=== PATIENT | female | born 1950 | race Caucasian/White ===

== ENCOUNTER 2022-12-31 21:03 | Emergency (ER) | payer MEDICARE, BC, SELFPAY ==
[2022-12-31 21:10] VITALS: BP 150/86; PULSE 80; RESP 18; TEMP 36.9; O2SAT 97; BMI 20.2
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
--- NOTE | 2022-12-31 21:31 | ED_ITS ---
HPI - Extremity Injury (Lower) General Chief Complaint: Extremity Injury, Lower Stated Complaint: LOWER EXTREMITY PAIN, RIGHT KNEE Time Seen by Provider: 12/31/22 21:21 Source: patient and family Mode of arrival: walk-in History of Present Illness HPI Narrative: This 72 year old female with a history of Severe arthritis and charcot brayan tooth presents for evaluation of right knee pain and swelling. Symptoms started this morning. She denies any injury. She has not fallen. She states that she was in the shower and felt that her knee was swollen and throughout the day it has gotten worse. She has severe pain with weightbearing. She is scheduled for a hip replacement in the near future with Dr. Leone in [place]. No additional injuries or complaints. No pain medications were taken prior to arrival. Related Data Allergies Allergy/AdvReac Type Severity Reaction Status Date / Time No Known Drug Allergies Allergy Verified 12/31/22 21:15 Review of Systems ROS Status of ROS 10 or more systems reviewed and unremarkable except as noted in history and below PFSH PFS Social History Smoking status: Current every day smoker Exam Narrative Exam Narrative: Nurses note and vital signs reviewed and patient is not hypoxic. Blood pressure noted to be elevated at 150/86 General: The patient appears well and in no apparent distress. Patient is resting comfortably on cart. Skin: Warm, dry, no pallor noted. There is no rash noted. Head: Normocephalic, atraumatic Eye: Normal conjunctiva, Vision grossly intact Ears, Nose, Mouth, and Throat: oral mucosa is moist. Cardiovascular: Regular Rate and Rhythm Respiratory: Patient is in no distress, no accessory muscle use, lungs are clear to auscultation, no wheezing, rales or rhonchi Back: non-tender, no CVA tenderness bilaterally to percussion. GI: Normal bowel sounds, no tenderness to palpation, no masses appreciated. No rebound, guarding, or rigidity noted. Musculoskeletal: There is marked tenderness and a large effusion over the right knee extending into the distal femur area. Patient is unable to fully extend her right leg. There is no calf swelling or tenderness. Severe arthritic changes are noted of both hands Neurological: A&O x4, normal speech Psychiatric: Cooperative Constitutional Vital Signs, click to edit/add: Last Vital Signs Temp 98.4 F 12/31/22 21:10 Pulse 80 12/31/22 21:10 Resp 18 12/31/22 21:10 BP 150/86 H 12/31/22 21:10 Pulse Ox 97 12/31/22 21:10 Course Vital Signs Vital signs: Vital Signs Temperature 98.4 F 12/31/22 21:10 Pulse Rate 80 12/31/22 21:10 Respiratory Rate 18 12/31/22 21:10 Blood Pressure 150/86 H 12/31/22 21:10 Pulse Oximetry 97 12/31/22 21:10 Temperature 98.4 F 12/31/22 21:10 Pulse Rate 80 12/31/22 21:10 Respiratory Rate 18 12/31/22 21:10 Blood Pressure 150/86 H 12/31/22 21:10 Pulse Oximetry 97 12/31/22 21:10 MDM - Extremity Injury (Lower) MDM Narrative Medical decision making narrative: Procedure note: Arthrocentesis right knee. Procedure was explained to the patient who verbalized understanding and signed consent. The right knee was cleaned with Betadine, sterile drapes were used around the knee. 5 mL of 1 percent lidocaine was infiltrated into the skin and the cutaneous tissues. An 18-gauge needle and 50 mL syringe was used to remove 50 mL of cloudy and mildly bloody synovial fluid from the right knee. The knee was then cleaned with sterile normal saline and a nonocclusive dressing was applied. A Kerlix was applied over the nonocclusive dressing and an Sam wrap was applied over the Kerlix. Patient tolerated procedure well and was able to flex her knee after the arthrocentesis. The synovial fluid that was removed was sent to the lab for cell count and culture Will follow-up with Dr. Leone, orthopedics in [place] X-ray of the knee shows degenerative changes and an effusion but no bony fracture Discharge Plan Discharge Chief Complaint: Extremity Injury, Lower Clinical Impression: Effusion, right knee, Osteoarthritis Patient Disposition: Home, Self-Care Time of Disposition Decision: 22:13 Instructions: Swollen Knee Joint (ED), Joint Aspiration (DC) Additional Instructions: Keep your right knee wrapped with an Sam wrap. Use her walker for ambulation. Use pain medications as needed. Return to emergency department for recurrence of the fluid in urine knee or any concerns. Follow up closely with Dr. Leone for further evaluation and treatment of the knee effusion. Stand Alone Forms: Portal Instructions Referrals: JONATHAN SAWYER [Primary Care Provider] - 1 week Discharge Date/Time: 12/31/22 22:28
[2022-12-31] MEDS: ONDANSETRON 4 MG RAPDIS TABLET SL (21:49)
[2022-12-31] MEDS: HYDROCODONE/ACETAMINOPHEN 5-325 MG TABLET 1 TAB PO (21:49)
== END 2022-12-31 22:28 | disposition home or self-care (01) ==
PROVIDERS: Emergency Provider Emergency Medicine; PCP Family Medicine
DX: M25.461 Effusion, right knee (principal); M17.11 Unilateral primary osteoarthritis, right knee; G60.0 Hereditary motor and sensory neuropathy; F17.210 Nicotine dependence, cigarettes, uncomplicated
CPT/HCPCS: 20610; 73562; 87070; 87205; 89051; 99284

== ENCOUNTER 2024-08-11 16:45 | Emergency (ER) | payer OTHER, MEDICARE, BC, SELFPAY ==
[2024-08-11 16:39] VITALS: BP 178/96; PULSE 75; TEMP 37.1; O2SAT 100; BMI 23.2
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
[2024-08-11] MEDS: KETOROLAC TROMETHAMINE 30 MG/ML VIAL 15 MG IM (17:31)
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
== END 2024-08-11 18:26 | disposition home or self-care (01) ==
PROVIDERS: Emergency Provider Emergency Medicine; PCP Family Medicine
DX: S13.9XXA Sprain of joints and ligaments of unspecified parts of neck, initial encounter (principal); V43.51XA Car driver injured in collision with sport utility vehicle in traffic accident, initial encounter; F17.200 Nicotine dependence, unspecified, uncomplicated
CPT/HCPCS: 70450; 70486; 72125; 96372; 99285; J1885